=== PATIENT | female | born 1985 | race American Indian/Alaskan Native ===

== ENCOUNTER 2021-09-24 13:24 | Outpatient (CLI) | payer OTHER ==
--- NOTE | 2021-09-24 15:01 | XRay Report ---
CHEST 2 VIEWS INDICATION / CLINICAL INFORMATION: annual physical. COMPARISON: None available. FINDINGS: SUPPORT DEVICES: None. HEART / MEDIASTINUM: No significant abnormality. LUNGS / PLEURA: No significant pulmonary or pleural abnormality. No pneumothorax. ADDITIONAL FINDINGS: S-shaped curvature of the thoracolumbar spine. IMPRESSION: 1. No acute findings. Signer Name: Scotty Mejia MD Signed: 09/24/2021 2:56 PM Workstation Name: [id number]
== END 2021-09-24 13:25 | disposition home or self-care (01) ==
LOC: XRAY 13:24
PROVIDERS: ATTEND Internal Medicine Hematology & Oncology
DX: Z00.00 Encounter for general adult medical examination without abnormal findings (principal); M43.8X5 Other specified deforming dorsopathies, thoracolumbar region
CPT/HCPCS: 71046

== ENCOUNTER 2021-10-12 11:12 | Outpatient (CLI) | payer OTHER ==
--- NOTE | 2021-10-12 16:21 | Ultrasound Report ---
ULTRASOUND PELVIS INDICATION / CLINICAL INFORMATION: N92.0. Dysfunctional uterine bleeding. TECHNIQUE: Transabdominal and Transvaginal. Duplex Color Doppler used: Yes. COMPARISON: None available FINDINGS: UTERUS: - Appearance: Enlarged, heterogeneous. - Size (cm): 11.2 x 6.7 x 6.3 cm. - Endometrial Complex (if present): No significant abnormality.. Thickness in cm (if measured) = 0.4 cm. - Mass or cyst: Multiple uterine fibroids. The largest is visualized posterior near the lower uterine segment measuring 5.0 cm in maximum dimension. - Additional findings: None. RIGHT ADNEXA: The right ovary measures 2.4 x 1.6 x 1.6 cm. No significant ovarian cyst or mass. Narcisa l color Doppler blood flow. LEFT ADNEXA: The left ovary measures 2.7 x 1.4 x 2.3 cm. No significant ovarian cyst or mass. Normal color Doppler blood flow. URINARY BLADDER: No significant abnormality. FREE FLUID: Minimal free fluid within the pelvis. ADDITIONAL FINDINGS: None. IMPRESSION: 1. Enlarged uterus with multiple fibroids measuring up to 5.0 cm. Scribed by: Marlene Padgett RDMS, MARY ANN, LATIA Scribed: 10/12/2021 3:00 PM I have reviewed the images, agree with this report, and edited this report as needed. Signer Name: Phi Woods MD Signed: 10/12/2021 4:17 PM Workstation Name: [employer]
== END 2021-10-12 11:13 | disposition home or self-care (01) ==
LOC: US 11:12
PROVIDERS: ATTEND Internal Medicine Hematology & Oncology
DX: D25.9 Leiomyoma of uterus, unspecified (principal); N92.0 Excessive and frequent menstruation with regular cycle; N85.2 Hypertrophy of uterus
CPT/HCPCS: 76830; 76856